=== PATIENT | male | born 1945 | race Caucasian/White ===

== ENCOUNTER 2020-08-25 15:09 | Inpatient (IN) | payer MEDICARE, SELFPAY ==
[2020-08-25 17:17] VITALS: BP 137/65; PULSE 71; TEMP 37.1; O2SAT 95
[2020-08-25 18:28] VITALS: BP 127/85; PULSE 86; RESP 18; TEMP 36.6; O2SAT 100
[2020-08-26 06:00] VITALS: BP 127/64; PULSE 77; RESP 16; TEMP 37.4; O2SAT 98
[2020-08-26 06:13] LABS: MANUAL DIFF FLAG NO
[2020-08-26 06:21] LABS: Basophils Percent Auto 0.4 % (0-2); Eosinophils Absolute Auto 0.1 X10*3/uL (0.0-0.4); Eosinophils Percent Auto 1.8 % (0-4); Hematocrit 34.4 % (42-52); Hemoglobin 10.8 g/dl (14.0-18.0); Imm Gran Abs Auto 0.02 X10*3/uL (0.00-0.03); Imm Gran Pct Auto 0.4 % (0.0-0.4); Lymphocytes Absolute Auto 0.8 X10*3/uL (1.2-4.9); Lymphocytes Percent Auto 18.3 % (20-40); Mean Corpuscular HGB Conc 31.4 g/dl (31.0-36.0); Mean Corpuscular Hemoglobin 30.6 pg (27.0-33.0); Mean Corpuscular Volume 97.5 fL (80-98); Mean Platelet Volume 9.3 fL (9.4-12.4); Monocytes Absolute Auto 0.4 X10*3/uL (0.1-1.2); Monocytes Percent Auto 7.9 % (2-11); Neutrophils Absolute Auto 3.2 X10*3/uL (2.0-8.3); Neutrophils Percent Auto 71.2 % (45-73); Platelet Count 137 X10*3/uL (160-400); Red Blood Count 3.53 X10*6/uL (4.60-5.80); Red Cell Distribution Width 16.1 % (11.0-16.0); White Blood Count 4.5 X10*3/uL (4.8-10.8)
[2020-08-26 06:51] LABS: Estimated Average Glucose 85 mg/dL; Hemoglobin A1c % 4.6 %
[2020-08-26 07:07] LABS: Alanine Aminotransferase 44 U/L (0-40); Albumin Level 3.5 g/dL (3.5-5.0); Alkaline Phosphatase 74 U/L (39-117); Anion Gap 9 (12-20); Aspartate Amino Transferase 27 U/L (5-37); Bilirubin Direct 0.2 mg/dL (0.0-0.5); Bilirubin Total 0.4 mg/dL (0.0-1.0); Blood Urea Nitrogen 18 mg/dL (9-16); Calcium 8.7 mg/dL (8.4-10.2); Carbon Dioxide 30 mmol/L (22-29); Chloride 104 mmol/L (96-108); Cholesterol 115 mg/dL; Creatinine Clr Calc Pharmacy 66.2; Estimated Glomerular Filt Rate > 60; Glucose Fasting 99 mg/dL (60-99); HDL Cholesterol 32 mg/dL; LDL Cholesterol Calculated 71 mg/dl; Potassium 4.6 mmol/L (3.3-5.1); Sodium 138 mmol/L (135-145); Total Protein 5.6 g/dL (6.5-8.0); Triglycerides 61 mg/dL
[2020-08-26 07:08] LABS: Thyroid Stimulating Hormone 1.36 uIU/mL (0.32-4.0)
--- NOTE | 2020-08-26 13:48 | HO.PSYADMNOT ---
HPI Chief Complaint: Adjustment D/O w/mixed Anxiety Depressed Mood Sources of Information: patient interviewed, chart reviewed and crisis/core team assessment reviewed HPI Subjective Notes: Conditional Voluntary Narrative: The patient is a 75 year old male, , father of 3 adult children, retired from the banking industry, living with his family with good social support, referred by his and [facility] provider since he became abruptly confused, with suicidal thoughts, inability to focus and altered mental status after the increase of Clomipramine from 50 mg to 100 mg. The patient reported that he can't remember the details but after he was on Clomipramine 100 mg, he became lost , with paranoia and sporadic auditory hallucinations. He was brought to the ED where he was medically cleared and transferred to this unit for psychiatric stabilization. During the intake interview, he was pleasant but confused, he didn't remember which hospital he was on but he was engagable and more oriented than before. He stated that he has depression and anxiety for years and he has never had psychotic symptoms on the past. Past Psychiatric History: Never admitted before, outpatient services, currently at [facility]. Medical Evaluation Reviewed: Hospitalist Jack Pending Assessed on the ED of [facility] Narrative: HTN High cholesterol Narrative: History of back surgery Family History: Denies Social History: Retired, living with his family, father of 3 adult children and 7 grandchildren, with good social support Substance History: Denies Trauma History: Denies Diagnostics Vital Signs (24Hr): Vital Signs - 24 hr 08/25/20 17:17 08/25/20 18:28 08/26/20 06:00 Temperature 98.7 F 97.8 F 99.3 F Pulse Rate 71 86 77 Respiratory Rate 18 16 Blood Pressure 137/65 127/85 127/64 Pulse Oximetry 95 100 98 Labs Results: 08/26/20 06:06 08/26/20 06:06 Labs: Laboratory Results - last 48 hr 08/26/20 08/26/20 08/26/20 06:06 06:06 06:06 WBC 4.5 L RBC 3.53 L Hgb 10.8 L Hct 34.4 L MCV 97.5 MCH 30.6 MCHC 31.4 RDW 16.1 H Plt Count 137 L MPV 9.3 L Immature Gran % (Auto) 0.4 Neut % (Auto) 71.2 Lymph % (Auto) 18.3 L [place] % (Auto) 7.9 Eos % (Auto) 1.8 Baso % (Auto) 0.4 Lymph # (Auto) 0.8 L [place] # (Auto) 0.4 Eos # (Auto) 0.1 Baso # (Auto) 0.0 Abs Immat Gran (auto) 0.02 Absolute Neuts (auto) 3.2 Absolute Nucleated RBC 0.000 Nucleated RBC % (auto) 0.0 Sodium 138 Potassium 4.6 Chloride 104 Carbon Dioxide 30 H Anion Gap 9 L BUN 18 H Creatinine 0.84 Estim Creat Clear Calc 66.2 Estimated GFR > 60 Fasting Glucose 99 Estimat Average Glucose 85 Hemoglobin A1c % 4.6 Calcium 8.7 Total Bilirubin 0.4 Direct Bilirubin 0.2 AST 27 ALT 44 H Alkaline Phosphatase 74 Total Protein 5.6 L Albumin 3.5 Triglycerides 61 Cholesterol 115 LDL Cholesterol, Calc 71 HDL Cholesterol 32 TSH 1.36 Meds/Allergies Meds Home Medications Acetaminophen (Acetaminophen 325 Mg Tablet) 650 mg PO Q6H PRN PRN Reason: Headache/Pain Mild Scale (1-3) Al Hydroxide/Mg Hydroxide (Magnesium Hydrox/Alum Hydrox 30 Ml Oral.Susp) 30 ml PO Q6H PRN PRN Reason: Heartburn/Nausea Aripiprazole (Aripiprazole 5 Mg Tablet) 5 mg PO DAILY ELIDA Atorvastatin Calcium (Atorvastatin Calcium 20 Mg Tablet) 20 mg PO BEDTIME ELIDA Cyanocobalamin (Cyanocobalamin (Vitamin B-12) 1,000 Mcg Tablet) 1,000 mcg PO DAILY ELIDA Docusate Sodium (Docusate Sodium 100 Mg Capsule) 200 mg PO BEDTIME ELIDA Hydroxyzine HCl (Hydroxyzine Hcl 25 Mg Tablet) 25 mg PO BEDTIME PRN PRN Reason: Anxiety Magnesium Hydroxide (Milk Of Magnesia 30 Ml Oral.Susp) 30 ml PO DAILY PRN PRN Reason: Constipation Multivitamins/Vitamin C (Multivitamin Tablet) 1 tab PO DAILY ELIDA Paroxetine HCl (Paroxetine Hcl 20 Mg Tablet) 20 mg PO DAILY ELIDA Trazodone HCl (Trazodone Hcl 50 Mg Tablet) 50 mg PO BEDTIME PRN PRN Reason: Insomnia Allergies Allergies Allergy/AdvReac Type Severity Reaction Status Date / Time lisinopril AdvReac Mild Cough Verified 08/25/20 17:00 losartan AdvReac Mild Cough Verified 08/25/20 16:59 Mental Status Exam Mental Status Exam Patient Appearance: Well Grooomed Patient Orientation: Person and Situation Level of Consciousness: Awake Patient Behavior: Cooperative, Confused (at times) and Good Eye Contact Mood Description: Withdrawn Affect Description: Constricted Ability to Follow Directions: Good Speech Pattern: Clear Memory Description: Immediate Impaired and Recent Impaired Hallucinations: None Delusions: Ideas of Reference Thought Process: Distracted and Slowed Thinking Thought Content: positive for Circumstantial and positive for Evasive Depressive Symptoms: Increased Irritability Judgement: Fair Assessment & Plan Assessment & Plan (1) Delirium due to medical condition with behavioral disturbance: Status: Acute Code(s): F05 - Delirium due to known physiological condition Assessment and Plan: The patient is an elderly male with an acute change of mental status after the increase of Clomipramine with changes on mental status and suicidal thoughts. Plan: 1. D/C Clomipramine 2. Gather collateral information from [facility]. 3. D/C anticholinergics (Vistaril, Atarax, etc)4 4. Bloodwork came back normal (2) Major depressive disorder, recurrent episode: Status: Acute Qualifiers: Major depression episode severity: severe Psychotic features: without psychotic features Qualified Code(s): F33.2 - Major depressive disorder, recurrent severe without psychotic features Code(s): F33.9 - Major depressive disorder, recurrent, unspecified Assessment and Plan: Plan: Continue with Paxil 20 mg po daily. Patient educated on: diagnosis, medication risk/benefits and therapeutic strategies Informed Consent: understands Reason for continued inpatient stay Substantial Risk for: harm to self, rapid decompensation and med/psych decompensation
--- NOTE | 2020-08-26 14:29 | MHC.CLN ---
NUTRITION PATIENT REPORTS 45# WEIGHT LOSS X 1 YEAR. ATTRIBUTED WEIGHT LOSS TO BOWEL CONCERNS, PRIMARILY CONSTIPATION. REPORTED WEIGHT LOSS X 1 YEAR=-7.6%,NOT SIGNIFICANT. REPORTS THAT HAS A GOOD APPETITE, EATING WELL, AND HAS GAINED SOME WEIGHT. DECLINED SUPPLEMENTS.
[2020-08-26] MEDS: PARoxetine HCL 20 MG TABLET PO (16:56)
[2020-08-26 18:00] VITALS: BP 115/57; PULSE 65; TEMP 36.4; O2SAT 99
[2020-08-26] MEDS: Docusate Sodium 100 MG CAPSULE 200 MG PO (20:23)
[2020-08-26] MEDS: Atorvastatin Calcium 20 MG TABLET PO (20:23)
[2020-08-27] MEDS: Multivitamin TABLET 1 TAB PO (08:01)
[2020-08-27] MEDS: PARoxetine HCL 20 MG TABLET PO (08:01)
[2020-08-27] MEDS: Cyanocobalamin (Vitamin B-12) 1,000 MCG TABLET 1000 MCG PO (08:01)
[2020-08-27] MEDS: ARIPiprazole 5 MG TABLET PO (08:01)
[2020-08-27 08:23] VITALS: BP 119/58; PULSE 83; RESP 16; TEMP 36.3; O2SAT 99
--- NOTE | 2020-08-27 09:34 | P.PNPSI_ITS ---
Subjective Subjective Date of Service: 08/27/20 Reason For Visit: Adjustment D/O w/mixed Anxiety Depressed Mood Interim History: pt reports his paxil has been increased and hydroxyzine has b een DCed. he c/o constipation and will check in with nursing staff on his options for today; encouraged him to ask RN to contact MD for PRN laxative if he weas unable to achieve satisfaction. mood fine, reports eating and sleeping well. no other complaints or requests. no remarkable report by staff; stable on unit, behaving appropriately, depressed. Mental Status Exam Mental Status Exam Narrative: appropriately dressed and groomed. no PMA/PMR. cooperative with interview. speech normal in rate, amount, loudness, tone, latency. thoughts linear and logical. affect constricted, normo-intense, non-labile. mood fine. no SI/HI/AVH expressed. Diagnostics Vital Signs (24Hr): Vital Signs - 24 hr 08/26/20 18:00 08/27/20 08:23 Temperature 97.6 F 97.3 F Pulse Rate 65 83 Respiratory Rate 16 Blood Pressure 115/57 L 119/58 L Pulse Oximetry 99 99 Labs Results: 08/26/20 06:06 08/26/20 06:06 Labs: Laboratory Results - last 48 hr 08/26/20 08/26/20 08/26/20 06:06 06:06 06:06 WBC 4.5 L RBC 3.53 L Hgb 10.8 L Hct 34.4 L MCV 97.5 MCH 30.6 MCHC 31.4 RDW 16.1 H Plt Count 137 L MPV 9.3 L Immature Gran % (Auto) 0.4 Neut % (Auto) 71.2 Lymph % (Auto) 18.3 L [place] % (Auto) 7.9 Eos % (Auto) 1.8 Baso % (Auto) 0.4 Lymph # (Auto) 0.8 L [place] # (Auto) 0.4 Eos # (Auto) 0.1 Baso # (Auto) 0.0 Abs Immat Gran (auto) 0.02 Absolute Neuts (auto) 3.2 Absolute Nucleated RBC 0.000 Nucleated RBC % (auto) 0.0 Sodium 138 Potassium 4.6 Chloride 104 Carbon Dioxide 30 H Anion Gap 9 L BUN 18 H Creatinine 0.84 Estim Creat Clear Calc 66.2 Estimated GFR > 60 Fasting Glucose 99 Estimat Average Glucose 85 Hemoglobin A1c % 4.6 Calcium 8.7 Total Bilirubin 0.4 Direct Bilirubin 0.2 AST 27 ALT 44 H Alkaline Phosphatase 74 Total Protein 5.6 L Albumin 3.5 Triglycerides 61 Cholesterol 115 LDL Cholesterol, Calc 71 HDL Cholesterol 32 TSH 1.36 Medications Medications Current Medications Generic Name Dose Route Start Last Admin Trade Name Freq PRN Reason Stop Dose Admin Acetaminophen 650 mg 08/25/20 17:01 Acetaminophen 325 Mg Tablet PO Q6H PRN Headache/Pain Mild Scale (1-3) Al Hydroxide/Mg Hydroxide 30 ml 08/25/20 17:01 Magnesium Hydrox/Alum Hydrox 30 Ml Oral.Susp PO Q6H PRN Heartburn/Nausea Aripiprazole 5 mg 08/27/20 09:00 08/27/20 08:01 Aripiprazole 5 Mg Tablet PO 5 mg DAILY ELIDA Administration Atorvastatin Calcium 20 mg 08/26/20 21:00 08/26/20 20:23 Atorvastatin Calcium 20 Mg Tablet PO 20 mg BEDTIME ELIDA Administration Cyanocobalamin 1,000 mcg 08/27/20 09:00 08/27/20 08:01 Cyanocobalamin (Vitamin B-12) 1,000 Mcg Tablet PO 1,000 mcg DAILY ELIDA Administration Docusate Sodium 200 mg 08/26/20 21:00 08/26/20 20:23 Docusate Sodium 100 Mg Capsule PO 200 mg BEDTIME ELIDA Administration Lorazepam 0.25 mg 08/26/20 14:03 Lorazepam 0.5 Mg Tablet PO Q8H PRN anxiety Magnesium Hydroxide 30 ml 08/25/20 17:01 Milk Of Magnesia 30 Ml Oral.Susp PO DAILY PRN Constipation Multivitamins/Vitamin C 1 tab 08/27/20 09:00 08/27/20 08:01 Multivitamin Tablet PO 1 tab DAILY ELIDA Administration Paroxetine HCl 20 mg 08/27/20 09:00 08/27/20 08:01 Paroxetine Hcl 20 Mg Tablet PO 20 mg DAILY ELIDA Administration Trazodone HCl 50 mg 08/25/20 17:01 Trazodone Hcl 50 Mg Tablet PO BEDTIME PRN Insomnia Allergies Allergies Allergy/AdvReac Type Severity Reaction Status Date / Time lisinopril AdvReac Mild Cough Verified 08/25/20 17:00 losartan AdvReac Mild Cough Verified 08/25/20 16:59 Assessment & Plan Assessment & Plan (1) Delirium due to medical condition with behavioral disturbance: Status: Acute Code(s): F05 - Delirium due to known physiological condition Assessment and Plan: The patient is a 75 yo male with an acute change of mental status after the increase of Clomipramine with changes on mental status and suicidal thoughts. Plan: 1. D/Daryl Clomipramine 2. Gather collateral information from [facility]. 3. D/Daryl anticholinergics (Vistaril, Atarax, etc) 4. Bloodwork came back normal (2) Major depressive disorder, recurrent episode: Qualifiers: Major depression episode severity: severe Psychotic features: without psychotic features Qualified Code(s): F33.2 - Major depressive disorder, recurrent severe without psychotic features Status: Acute Code(s): F33.9 - Major depressive disorder, recurrent, unspecified Assessment and Plan: Plan: Continue with Paxil 20 mg po daily. Greater than 50% of the session was spent on counseling and/or coordination of care Reason for contiued inpatient stay Substantial Risk for: inability to function and rapid decompensation
[2020-08-27 10:13] LABS: Amphetamine Screen Urine Not Detected (Not Detect); Barbiturates, Urine Not Detected (Not Detect); Benzodiazepines Screen Urine Not Detected (Not Detect); Cannabinoid Screen Urine Not Detected (Not Detect); Cocaine Screen Urine Not Detected (Not Detect); Opiate Screen Urine Not Detected (Not Detect); Phencyclidine Screen Urine Not Detected (Not Detect)
[2020-08-27] MEDS: Milk of Magnesia 30 ML ORAL.SUSP PO (10:46)
--- NOTE | 2020-08-27 16:15 | P.CONIM_ITS ---
History of Present Illness Data of Consult Service Date: 08/27/20 Primary Care Provider: Riky Greene MD [facility] Reason for consult: Medical evaluation 75 year old male with HTN, HLD, former banker from [employer] no diabetes, no CAD, says he is very active and walk alot and looks fit. He is presently admitted to inpatient Psych due acute onset of confusion, with with suicidal thoughts, lack of focus and family concern, this following recent increase in Clomipramine from 50 mg to 100 mg. He states that he feels lost, and has periods of paranoia and auditory hallucination. He interacted rather well during my encouter with him. Has no angina, no heart failure symptoms. Review of Systems Review of Systems: Gen: no fever Resp: no sob, no cough CV: no chest, no WATERS, no leg edema GI: No n/v, no abd pain Neuro: No confusion Yes all other systems are reviewed and are negative [facility] Medical History (Updated 08/27/20 @ 16:17 by Jian Daniel MD) HLD (hyperlipidemia) HTN (hypertension) Pertinent family history: Father at 62 Family history: reviewed and not pertinent Surgical History Previous back surgery Social History Household Members: Spouse Housing: House Do you presently have visiting nurse or other home services: No Patient Tobacco Use Status: Never used Tobacco e-Cigarette/Vaping Use: Never Used Use of substances other than those prescribed or required for medical reasons: No Currently Displaying Signs/Symptoms of Drug Intoxication Withdrawal: No Have you been hit, kicked, punched, or otherwise hurt by someone within the past year? If so, by whom?: No Do you feel safe in your current relationship?: Yes Is there a partner from a previous relationship who is making you feel unsafe now?: No Are you made to feel afraid or neglected: No Advance Directives: No Advance Directives Information Provided: Yes Advance Directives on File: No Do you have thoughts of harming others: None Do you have a plan to hurt others: No Plan Recently lost weight without trying: Yes How much weight loss: 34pounds or more Eating poorly because of decreased appetite: Yes Nutrition screen score: 7 Poor oral hygiene: No service: Yes Sexual orientation: Straight/Heterosexual Meds Allergies Allergy/AdvReac Type Severity Reaction Status Date / Time lisinopril AdvReac Mild Cough Verified 08/25/20 17:00 losartan AdvReac Mild Cough Verified 08/25/20 16:59 Active Medications: Current Medications Generic Name Dose Route Start Last Admin Trade Name Freq PRN Reason Stop Dose Admin Acetaminophen 650 mg 08/25/20 17:01 Acetaminophen 325 Mg Tablet PO Q6H PRN Headache/Pain Mild Scale (1-3) Al Hydroxide/Mg Hydroxide 30 ml 08/25/20 17:01 Magnesium Hydrox/Alum Hydrox 30 Ml Oral.Susp PO Q6H PRN Heartburn/Nausea Aripiprazole 5 mg 08/27/20 09:00 08/27/20 08:01 Aripiprazole 5 Mg Tablet PO 5 mg DAILY ELIDA Administration Atorvastatin Calcium 20 mg 08/26/20 21:00 08/26/20 20:23 Atorvastatin Calcium 20 Mg Tablet PO 20 mg BEDTIME ELIDA Administration Cyanocobalamin 1,000 mcg 08/27/20 09:00 08/27/20 08:01 Cyanocobalamin (Vitamin B-12) 1,000 Mcg Tablet PO 1,000 mcg DAILY ELIDA Administration Docusate Sodium 200 mg 08/26/20 21:00 08/26/20 20:23 Docusate Sodium 100 Mg Capsule PO 200 mg BEDTIME ELIDA Administration Lorazepam 0.25 mg 08/26/20 14:03 Lorazepam 0.5 Mg Tablet PO Q8H PRN anxiety Magnesium Hydroxide 30 ml 08/25/20 17:01 08/27/20 10:46 Milk Of Magnesia 30 Ml Oral.Susp PO 30 ml DAILY PRN Administration Constipation Multivitamins/Vitamin C 1 tab 08/27/20 09:00 08/27/20 08:01 Multivitamin Tablet PO 1 tab DAILY ELIDA Administration Paroxetine HCl 20 mg 08/27/20 09:00 08/27/20 08:01 Paroxetine Hcl 20 Mg Tablet PO 20 mg DAILY ELIDA Administration Trazodone HCl 50 mg 08/25/20 17:01 Trazodone Hcl 50 Mg Tablet PO BEDTIME PRN Insomnia Home Medications Medication Instructions Recorded Confirmed Last Taken Type aripiprazole 5 mg PO DAILY 08/25/20 08/25/20 Unknown History atorvastatin 20 mg PO DAILY 08/25/20 08/25/20 Unknown History clomipramine 100 mg PO DAILY 08/25/20 08/25/20 Unknown History cyanocobalamin (vitamin B-12) 1,000 mcg PO DAILY 08/25/20 08/25/20 Unknown History docusate sodium 250 mg PO DAILY 08/25/20 08/25/20 Unknown History multivitamin 1 tab PO DAILY 08/25/20 08/25/20 Unknown History paroxetine HCl 20 mg PO DAILY 08/25/20 08/25/20 Unknown History sildenafil 50 mg PO DAILY 08/25/20 08/25/20 Unknown History Physical Exam Vital Signs and Narrative: Vital Signs: Last Vital Signs Temp 97.3 F 08/27/20 08:23 Pulse 83 08/27/20 08:23 Resp 16 08/27/20 08:23 BP 119/58 L 08/27/20 08:23 Pulse Ox 99 08/27/20 08:23 Results Labs CBC and Chem 7: 08/26/20 06:06 08/26/20 06:06 Labs: Laboratory Results - last 24 hr 08/27/20 Unknown Urine Opiates Screen Not Detected Ur Barbiturates Screen Not Detected Ur Phencyclidine Scrn Not Detected Ur Amphetamines Screen Not Detected U Benzodiazepines Scrn Not Detected Urine Cocaine Screen Not Detected U Marijuana (THC) Screen Not Detected Assessment and Plan (1) HLD (hyperlipidemia): Status: Acute (2) HTN (hypertension): Status: Acute 75 year male with HTN, HLD presently admitted to Psych with major depression, delirium, paranoia and auditory hallucination possibly related to adjustment in Clomipramine plan/recommemdation HTN--BP is within normal or slightly low and doesn't need med intervention at this time. He presently not on meds, he has allery to ACEi and ARBs in the form of cough HLD--To continue Lipitor Pysch issues: care per psych. Thanks for the consult, please contact us with new issues or concerns
[2020-08-27 18:27] VITALS: BP 123/58; PULSE 75; RESP 16; TEMP 37; O2SAT 100
[2020-08-27] MEDS: Docusate Sodium 100 MG CAPSULE 200 MG PO (19:49)
[2020-08-27] MEDS: Atorvastatin Calcium 20 MG TABLET PO (19:49)
[2020-08-28 05:14] VITALS: BP 167/80; PULSE 85; RESP 16; TEMP 36.6; O2SAT 100
[2020-08-28] MEDS: ARIPiprazole 5 MG TABLET PO (07:53)
[2020-08-28] MEDS: PARoxetine HCL 20 MG TABLET PO (07:53)
[2020-08-28] MEDS: Multivitamin TABLET 1 TAB PO (07:53)
[2020-08-28] MEDS: Cyanocobalamin (Vitamin B-12) 1,000 MCG TABLET 1000 MCG PO (07:53)
--- NOTE | 2020-08-28 11:55 | P.PNPSI_ITS ---
Subjective Subjective Date of Service: 08/28/20 Reason For Visit: Adjustment D/O w/mixed Anxiety Depressed Mood Interim History: states he has no questions or requests of MD today. spontane ously offers that his mind has settled down and that things are more stable. no remarkable report by staff. Mental Status Exam Mental Status Exam Narrative: appropriately dressed and groomed. no PMA/PMR. cooperative with interview. speech normal in rate, amount, loudness, tone, latency. thoughts linear and logical. affect constricted, normo-intense, non-labile. no SI/HI/AVH expressed. Diagnostics Vital Signs (24Hr): Vital Signs - 24 hr 08/27/20 18:27 08/28/20 05:14 Temperature 98.6 F 98 F Pulse Rate 75 85 Respiratory Rate 16 16 Blood Pressure 123/58 L 167/80 H Pulse Oximetry 100 100 Labs Results: 08/26/20 06:06 08/26/20 06:06 Labs: Laboratory Results - last 48 hr 08/27/20 Unknown Urine Opiates Screen Not Detected Ur Barbiturates Screen Not Detected Ur Phencyclidine Scrn Not Detected Ur Amphetamines Screen Not Detected U Benzodiazepines Scrn Not Detected Urine Cocaine Screen Not Detected U Marijuana (THC) Screen Not Detected Medications Medications Current Medications Generic Name Dose Route Start Last Admin Trade Name Freq PRN Reason Stop Dose Admin Acetaminophen 650 mg 08/25/20 17:01 Acetaminophen 325 Mg Tablet PO Q6H PRN Headache/Pain Mild Scale (1-3) Al Hydroxide/Mg Hydroxide 30 ml 08/25/20 17:01 Magnesium Hydrox/Alum Hydrox 30 Ml Oral.Susp PO Q6H PRN Heartburn/Nausea Aripiprazole 5 mg 08/27/20 09:00 08/28/20 07:53 Aripiprazole 5 Mg Tablet PO 5 mg DAILY ELIDA Administration Atorvastatin Calcium 20 mg 08/26/20 21:00 08/27/20 19:49 Atorvastatin Calcium 20 Mg Tablet PO 20 mg BEDTIME ELIDA Administration Cyanocobalamin 1,000 mcg 08/27/20 09:00 08/28/20 07:53 Cyanocobalamin (Vitamin B-12) 1,000 Mcg Tablet PO 1,000 mcg DAILY ELIDA Administration Docusate Sodium 200 mg 08/26/20 21:00 08/27/20 19:49 Docusate Sodium 100 Mg Capsule PO 200 mg BEDTIME ELIDA Administration Lorazepam 0.25 mg 08/26/20 14:03 Lorazepam 0.5 Mg Tablet PO Q8H PRN anxiety Magnesium Hydroxide 30 ml 08/25/20 17:01 08/27/20 10:46 Milk Of Magnesia 30 Ml Oral.Susp PO 30 ml DAILY PRN Administration Constipation Multivitamins/Vitamin C 1 tab 08/27/20 09:00 08/28/20 07:53 Multivitamin Tablet PO 1 tab DAILY ELIDA Administration Paroxetine HCl 20 mg 08/27/20 09:00 08/28/20 07:53 Paroxetine Hcl 20 Mg Tablet PO 20 mg DAILY ELIDA Administration Trazodone HCl 50 mg 08/25/20 17:01 Trazodone Hcl 50 Mg Tablet PO BEDTIME PRN Insomnia Allergies Allergies Allergy/AdvReac Type Severity Reaction Status Date / Time lisinopril AdvReac Mild Cough Verified 08/25/20 17:00 losartan AdvReac Mild Cough Verified 08/25/20 16:59 Assessment & Plan Assessment & Plan (1) HLD (hyperlipidemia): Status: Acute Code(s): E78.5 - Hyperlipidemia, unspecified (2) HTN (hypertension): Status: Acute Code(s): I10 - Essential (primary) hypertension Assessment and Plan: The patient is a 75 yo male with an acute change of mental status after the increase of Clomipramine with changes on mental status and suicidal thoughts. continues to clear nicely. Plan: 1. D/Daryl Clomipramine 2. Gather collateral information from [facility]. 3. D/Daryl anticholinergics (Vistaril, Atarax, etc) 4. Bloodwork came back normal Greater than 50% of the session was spent on counseling and/or coordination of care Reason for contiued inpatient stay Substantial Risk for: inability to function
[2020-08-28 17:33] VITALS: BP 117/56; PULSE 89; RESP 16; TEMP 36.8; O2SAT 100
[2020-08-28] MEDS: Atorvastatin Calcium 20 MG TABLET PO (20:20)
[2020-08-28] MEDS: Docusate Sodium 100 MG CAPSULE 200 MG PO (20:20)
[2020-08-29 05:32] VITALS: BP 130/61; PULSE 69; RESP 18; TEMP 36.6; O2SAT 98
[2020-08-29] MEDS: Multivitamin TABLET 1 TAB PO (08:07)
[2020-08-29] MEDS: Cyanocobalamin (Vitamin B-12) 1,000 MCG TABLET 1000 MCG PO (08:07)
[2020-08-29] MEDS: PARoxetine HCL 20 MG TABLET PO (08:07)
[2020-08-29] MEDS: ARIPiprazole 5 MG TABLET PO (08:07)
--- NOTE | 2020-08-29 10:57 | P.PNPSI_ITS ---
Subjective Subjective Date of Service: 08/29/20 Reason For Visit: Adjustment D/O w/mixed Anxiety Depressed Mood Interim History: states he has no questions or requests of MD today. continues to feel much less confused, thinking of discharge. no remarkable report by staff. Mental Status Exam Mental Status Exam Narrative: appropriately dressed and groomed. no PMA/PMR. [facility]. speech normal in rate, amount, loudness, tone, latency. thoughts linear and logical. affect constricted, normo-intense, non-labile. no SI/HI/AVH expressed. Diagnostics Vital Signs (24Hr): Vital Signs - 24 hr 08/28/20 17:33 08/29/20 05:32 Temperature 98.2 F 97.9 F Pulse Rate 89 69 Respiratory Rate 16 18 Blood Pressure 117/56 L 130/61 Pulse Oximetry 100 98 Labs Results: 08/26/20 06:06 08/26/20 06:06 Medications Medications Current Medications Generic Name Dose Route Start Last Admin Trade Name Freq PRN Reason Stop Dose Admin Acetaminophen 650 mg 08/25/20 17:01 Acetaminophen 325 Mg Tablet PO Q6H PRN Headache/Pain Mild Scale (1-3) Al Hydroxide/Mg Hydroxide 30 ml 08/25/20 17:01 Magnesium Hydrox/Alum Hydrox 30 Ml Oral.Susp PO Q6H PRN Heartburn/Nausea Aripiprazole 5 mg 08/27/20 09:00 08/29/20 08:07 Aripiprazole 5 Mg Tablet PO 5 mg DAILY ELIDA Administration Atorvastatin Calcium 20 mg 08/26/20 21:00 08/28/20 20:20 Atorvastatin Calcium 20 Mg Tablet PO 20 mg BEDTIME ELIDA Administration Cyanocobalamin 1,000 mcg 08/27/20 09:00 08/29/20 08:07 Cyanocobalamin (Vitamin B-12) 1,000 Mcg Tablet PO 1,000 mcg DAILY ELIDA Administration Docusate Sodium 200 mg 08/26/20 21:00 08/28/20 20:20 Docusate Sodium 100 Mg Capsule PO 200 mg BEDTIME ELIDA Administration Lorazepam 0.25 mg 08/26/20 14:03 Lorazepam 0.5 Mg Tablet PO Q8H PRN anxiety Magnesium Hydroxide 30 ml 08/25/20 17:01 08/27/20 10:46 Milk Of Magnesia 30 Ml Oral.Susp PO 30 ml DAILY PRN Administration Constipation Multivitamins/Vitamin C 1 tab 08/27/20 09:00 08/29/20 08:07 Multivitamin Tablet PO 1 tab DAILY ELIDA Administration Paroxetine HCl 20 mg 08/27/20 09:00 08/29/20 08:07 Paroxetine Hcl 20 Mg Tablet PO 20 mg DAILY ELIDA Administration Trazodone HCl 50 mg 08/25/20 17:01 Trazodone Hcl 50 Mg Tablet PO BEDTIME PRN Insomnia Allergies Allergies Allergy/AdvReac Type Severity Reaction Status Date / Time lisinopril AdvReac Mild Cough Verified 08/25/20 17:00 losartan AdvReac Mild Cough Verified 08/25/20 16:59 Assessment & Plan Assessment & Plan (1) HLD (hyperlipidemia): Status: Acute Code(s): E78.5 - Hyperlipidemia, unspecified (2) HTN (hypertension): Status: Acute Code(s): I10 - Essential (primary) hypertension Assessment and Plan: The patient is a 75 yo male with an acute change of mental status after the increase of Clomipramine with changes on mental status and suicidal thoughts. continues to clear nicely. Plan: 1. D/Daryl Clomipramine 2. Gather collateral information from [facility]. 3. D/Daryl anticholinergics (Vistaril, Atarax, etc) 4. Bloodwork came back normal Greater than 50% of the session was spent on counseling and/or coordination of care Reason for contiued inpatient stay Substantial Risk for: inability to function
[2020-08-29 17:44] VITALS: BP 121/64; PULSE 78; RESP 16; TEMP 36.7; O2SAT 98
[2020-08-29] MEDS: Docusate Sodium 100 MG CAPSULE 200 MG PO (20:37)
[2020-08-29] MEDS: Atorvastatin Calcium 20 MG TABLET PO (20:37)
--- NOTE | 2020-08-30 | ECG_ITS ---
Test Reason : QTC Blood Pressure : / mmHG Vent. Rate : 077 BPM Atrial Rate : 077 BPM P-R Int : 148 ms QRS Dur : 090 ms QT Int : 364 ms P-R-T Axes : 031 021 040 degrees QTc Int : 411 ms Sinus rhythm with marked sinus arrhythmia Otherwise normal ECG When compared with ECG of 22-JAN-2007 13:44, Premature supraventricular complexes are no longer Present Vent. rate has increased BY 25 BPM Referred By: Thiago Crow Electronically Signed By:MONTANA ESPINOZA
[2020-08-30 06:42] VITALS: BP 149/72; PULSE 70; RESP 16; TEMP 36.8; O2SAT 100
[2020-08-30] MEDS: ARIPiprazole 5 MG TABLET PO (08:17)
[2020-08-30] MEDS: Multivitamin TABLET 1 TAB PO (08:17)
[2020-08-30] MEDS: PARoxetine HCL 20 MG TABLET PO (08:17)
[2020-08-30] MEDS: Cyanocobalamin (Vitamin B-12) 1,000 MCG TABLET 1000 MCG PO (08:17)
--- NOTE | 2020-08-30 10:57 | HO.PSYCHPN ---
Subjective Subjective Date of Service: 08/30/20 Reason For Visit: Adjustment D/O w/mixed Anxiety Depressed Mood Subjective Notes: Conditional Voluntary Interim History: The patient has slept well in the unit, he was less confused after Clomipramine was discontinued. Her outpatient DIRECTOR OF ELEMENTARY EDUCATION Tabitha Jose at [phone] was contacted and she reported that she saw over the phone only once and her PCP increased the Clomipramine. Apparently, he was admitted once in May 2020 after he cut himself to the tendons and Clomipramine was started. We discussed options and I offered Luvox instead of Clomipramine and Paxil. Review of Systems Review of Systems Yes all other systems are reviewed and are negative Mental Status Exam Mental Status Exam Patient Appearance: Well Grooomed Patient Orientation: Person and Place Level of Consciousness: Awake Patient Behavior: Appropriate Mood Description: Calm and Withdrawn Affect Description: Constricted Patient Cognition Impaired: No Ability to Follow Directions: Good Speech Pattern: Clear Memory Description: Immediate Impaired Hallucinations: None Delusions: Not Present Thought Process: Linear and Slowed Thinking Thought Content: positive for Obsessional Thoughts Depressive Symptoms: Increased Anxiety Judgement: Fair Diagnostics Vital Signs (24Hr): Vital Signs - 24 hr 08/29/20 17:44 08/30/20 06:42 Temperature 98.1 F 98.2 F Pulse Rate 78 70 Respiratory Rate 16 16 Blood Pressure 121/64 149/72 H Pulse Oximetry 98 100 Labs Results: 08/26/20 06:06 08/26/20 06:06 Medications Medications Current Medications Generic Name Dose Route Start Last Admin Trade Name Freq PRN Reason Stop Dose Admin Acetaminophen 650 mg 08/25/20 17:01 Acetaminophen 325 Mg Tablet PO Q6H PRN Headache/Pain Mild Scale (1-3) Al Hydroxide/Mg Hydroxide 30 ml 08/25/20 17:01 Magnesium Hydrox/Alum Hydrox 30 Ml Oral.Susp PO Q6H PRN Heartburn/Nausea Aripiprazole 5 mg 08/27/20 09:00 08/30/20 08:17 Aripiprazole 5 Mg Tablet PO 5 mg DAILY ELIDA Administration Atorvastatin Calcium 20 mg 08/26/20 21:00 08/29/20 20:37 Atorvastatin Calcium 20 Mg Tablet PO 20 mg BEDTIME ELIDA Administration Cyanocobalamin 1,000 mcg 08/27/20 09:00 08/30/20 08:17 Cyanocobalamin (Vitamin B-12) 1,000 Mcg Tablet PO 1,000 mcg DAILY ELIDA Administration Docusate Sodium 200 mg 08/26/20 21:00 08/29/20 20:37 Docusate Sodium 100 Mg Capsule PO 200 mg BEDTIME ELIDA Administration Lorazepam 0.25 mg 08/26/20 14:03 Lorazepam 0.5 Mg Tablet PO Q8H PRN anxiety Magnesium Hydroxide 30 ml 08/25/20 17:01 08/27/20 10:46 Milk Of Magnesia 30 Ml Oral.Susp PO 30 ml DAILY PRN Administration Constipation Multivitamins/Vitamin C 1 tab 08/27/20 09:00 08/30/20 08:17 Multivitamin Tablet PO 1 tab DAILY ELIDA Administration Paroxetine HCl 20 mg 08/27/20 09:00 08/30/20 08:17 Paroxetine Hcl 20 Mg Tablet PO 20 mg DAILY ELIDA Administration Trazodone HCl 50 mg 08/25/20 17:01 Trazodone Hcl 50 Mg Tablet PO BEDTIME PRN Insomnia Allergies Allergies Allergy/AdvReac Type Severity Reaction Status Date / Time lisinopril AdvReac Mild Cough Verified 08/25/20 17:00 losartan AdvReac Mild Cough Verified 08/25/20 16:59 Assessment & Plan Assessment & Plan (1) HLD (hyperlipidemia): Status: Acute Code(s): E78.5 - Hyperlipidemia, unspecified (2) HTN (hypertension): Status: Acute Code(s): I10 - Essential (primary) hypertension Assessment and Plan: The patient is a 75 yo male with an acute change of mental status after the increase of Clomipramine with changes on mental status and suicidal thoughts. continues to clear nicely. Plan: 1. Increase Paxil up to 30 mg to target dysphoria and OCD 2. Stop Clomipramine. Greater than 50% of the session was spent on counseling and/or coordination of care Reason for contiued inpatient stay Substantial Risk for: inability to function, rapid decompensation and med/psych decompensation
[2020-08-30] MEDS: PARoxetine HCL 10 MG TABLET PO (13:45)
[2020-08-30 17:44] VITALS: BP 119/64; PULSE 85; TEMP 37.4; O2SAT 99
[2020-08-30] MEDS: Docusate Sodium 100 MG CAPSULE 200 MG PO (21:24)
[2020-08-30] MEDS: Atorvastatin Calcium 20 MG TABLET PO (21:24)
[2020-08-31 06:00] VITALS: BP 135/65; PULSE 83; RESP 12; TEMP 36.3; O2SAT 99
[2020-08-31] MEDS: PARoxetine HCL 10 MG TABLET 30 MG PO (07:58)
[2020-08-31] MEDS: Cyanocobalamin (Vitamin B-12) 1,000 MCG TABLET 1000 MCG PO (07:58)
[2020-08-31] MEDS: Multivitamin TABLET 1 TAB PO (07:58)
[2020-08-31] MEDS: ARIPiprazole 5 MG TABLET PO (07:58)
--- NOTE | 2020-08-31 11:24 | P.PNPSI_ITS ---
Subjective Subjective Date of Service: 08/31/20 Reason For Visit: Adjustment D/O w/mixed Anxiety Depressed Mood Subjective Notes: Conditional Voluntary Interim History: The patient reported that his psychotic symptoms has cleared. He wanted to continue using Paxil for depression and OCD. He denies depressive symptoms but his affect is constricted. His , who does not live with him, called and reported that he is not at baseline but as per the patient, they are stranged. The patient adamantly denied suicidal thoughts. Medication Compliance: Yes Review of Systems Acute medical concerns: No Medical Review of Systems: unchanged Mental Status Exam Mental Status Exam Patient Appearance: Well Grooomed Patient Orientation: Person, Place and Time Level of Consciousness: Awake and Appropriate Patient Behavior: Cooperative Mood Description: Calm and Depressed Affect Description: Constricted Patient Cognition Impaired: No Ability to Follow Directions: Good Speech Pattern: Clear Hallucinations: None Delusions: Not Present Thought Process: Goal Oriented and Linear Thought Content: positive for Goal Oriented and positive for Poverty of Content Judgement: Fair Diagnostics Vital Signs (24Hr): Vital Signs - 24 hr 08/30/20 17:44 08/31/20 06:00 Temperature 99.3 F 97.4 F Pulse Rate 85 83 Respiratory Rate 12 Blood Pressure 119/64 135/65 Pulse Oximetry 99 99 Labs Results: 08/26/20 06:06 08/26/20 06:06 Medications Medications Current Medications Generic Name Dose Route Start Last Admin Trade Name Freq PRN Reason Stop Dose Admin Acetaminophen 650 mg 08/25/20 17:01 Acetaminophen 325 Mg Tablet PO Q6H PRN Headache/Pain Mild Scale (1-3) Al Hydroxide/Mg Hydroxide 30 ml 08/25/20 17:01 Magnesium Hydrox/Alum Hydrox 30 Ml Oral.Susp PO Q6H PRN Heartburn/Nausea Aripiprazole 5 mg 08/27/20 09:00 08/31/20 07:58 Aripiprazole 5 Mg Tablet PO 5 mg DAILY ELIDA Administration Atorvastatin Calcium 20 mg 08/26/20 21:00 08/30/20 21:24 Atorvastatin Calcium 20 Mg Tablet PO 20 mg BEDTIME ELIDA Administration Cyanocobalamin 1,000 mcg 08/27/20 09:00 08/31/20 07:58 Cyanocobalamin (Vitamin B-12) 1,000 Mcg Tablet PO 1,000 mcg DAILY ELIDA Administration Docusate Sodium 200 mg 08/26/20 21:00 08/30/20 21:24 Docusate Sodium 100 Mg Capsule PO 200 mg BEDTIME ELIDA Administration Lorazepam 0.25 mg 08/26/20 14:03 Lorazepam 0.5 Mg Tablet PO Q8H PRN anxiety Magnesium Hydroxide 30 ml 08/25/20 17:01 08/27/20 10:46 Milk Of Magnesia 30 Ml Oral.Susp PO 30 ml DAILY PRN Administration Constipation Multivitamins/Vitamin C 1 tab 08/27/20 09:00 08/31/20 07:58 Multivitamin Tablet PO 1 tab DAILY ELIDA Administration Paroxetine HCl 30 mg 08/31/20 09:00 08/31/20 07:58 Paroxetine Hcl 10 Mg Tablet PO 30 mg DAILY ELIDA Administration Trazodone HCl 50 mg 08/25/20 17:01 Trazodone Hcl 50 Mg Tablet PO BEDTIME PRN Insomnia Allergies Allergies Allergy/AdvReac Type Severity Reaction Status Date / Time lisinopril AdvReac Mild Cough Verified 08/25/20 17:00 losartan AdvReac Mild Cough Verified 08/25/20 16:59 Assessment & Plan Assessment & Plan (1) HLD (hyperlipidemia): Status: Acute Code(s): E78.5 - Hyperlipidemia, unspecified (2) HTN (hypertension): Status: Acute Code(s): I10 - Essential (primary) hypertension Assessment and Plan: The patient is a 75 yo male with an acute change of mental status a fter the increase of Clomipramine with changes on mental status and suicidal thoughts. continues to clear nicely. Plan: 1. Keep Paxil 30 mg to target dysphoria and OCD 2. Stop Clomipramine. 3. D/C Tomorrow Greater than 50% of the session was spent on counseling and/or coordination of care Reason for contiued inpatient stay Substantial Risk for: inability to function, rapid decompensation and med/psych decompensation
--- NOTE | 2020-08-31 14:48 | PC.NURSE ---
Patient's Marcia Fatima called and spoke to this Internal Review And Audit Compliance; she expressed concern of patient being discharged home alone with no supports or services; this Internal Review And Audit Compliance alerted her that her concerns would be passed onto the MD, Dr. Crow notified via [employer]. Tabitha Chen, patient's outside provider from [facility], called in the afternoon after she too had been called by patient's . Tabitha asked about discharge plan and expressed the concerns the with the patient being discharged when I hear he is still confused and depressed ; this RN able to update provider of improvements the patient has made since being admitted; provider was then transferred to speak with Unit JUNIE El.
[2020-08-31 18:00] VITALS: BP 110/57; PULSE 84; RESP 18; TEMP 36.5; O2SAT 100
[2020-08-31] MEDS: Atorvastatin Calcium 20 MG TABLET PO (20:22)
[2020-08-31] MEDS: Docusate Sodium 100 MG CAPSULE 200 MG PO (20:22)
--- NOTE | 2020-08-31 20:58 | PC.NURSE ---
PT complaining of constipation for 3-4 days. This nurse recommended ways to decrease constipation (increased fiber, increased water, and exercise or activity). PT stated that he has tried to increase fiber and water intake but still has difficulty moving his bowels. PRN milk of mag given to help create BM.
[2020-08-31] MEDS: Milk of Magnesia 30 ML ORAL.SUSP PO (21:09)
[2020-09-01 06:00] VITALS: BP 143/62; PULSE 73; RESP 18; TEMP 36.4; O2SAT 100
[2020-09-01 07:00] VITALS: BMI 22.4
[2020-09-01] MEDS: PARoxetine HCL 10 MG TABLET 30 MG PO (08:34)
[2020-09-01] MEDS: ARIPiprazole 5 MG TABLET PO (08:35)
[2020-09-01] MEDS: Cyanocobalamin (Vitamin B-12) 1,000 MCG TABLET 1000 MCG PO (08:35)
[2020-09-01] MEDS: Multivitamin TABLET 1 TAB PO (08:35)
--- NOTE | 2020-09-01 10:51 | P.DS_ITS ---
DS: Providers Provider Date of Service: 09/01/20 Date of admission: 08/25/20 15:09 Date of discharge: 09/01/20 Primary care physician: Riky Greene MD Consults: 08/25/20 17:01 Consult to Hospitalist Routine Consulting Provider: Hospitalist Reason For Exam: Direct admission 08/26/20 10:58 Consult to Hospitalist Routine Consulting Provider: Hospitalist Reason For Exam: Direct admission from [facility] Attending physician on discharge: Thiago Crow DS: Diagnosis Discharge Diagnosis (1) HLD (hyperlipidemia): Status: Acute (2) HTN (hypertension): Status: Acute (3) Delirium due to medical condition with behavioral disturbance: Status: Acute (4) Major depressive disorder, recurrent episode: Status: Acute (5) Obsessive compulsive disorder: Status: Acute DS: Medications Discharge Medications Home Medications: Home Medications Medication Instructions Recorded Confirmed aripiprazole 5 mg PO DAILY 08/25/20 08/25/20 atorvastatin 20 mg PO DAILY 08/25/20 08/25/20 clomipramine 100 mg PO DAILY 08/25/20 08/25/20 cyanocobalamin (vitamin B-12) 1,000 mcg PO DAILY 08/25/20 08/25/20 docusate sodium 250 mg PO DAILY 08/25/20 08/25/20 multivitamin 1 tab PO DAILY 08/25/20 08/25/20 paroxetine HCl 20 mg PO DAILY 08/25/20 08/25/20 sildenafil 50 mg PO DAILY 08/25/20 08/25/20 Discharge Plan Discharge Patient Disposition: Home, Self-Care Discharge Diagnosis: Delirium due to medical condition. MDD OCD Referrals: [facility] [Other] - 1 Week (Referral made to [facility] today 09/01/20 for in home services. T/w spoke with Suleiman who reports they will contact [facility] and scheduled home visit for next week. Please call [employer] for additional questions as needed. T/w also provided contact information to intake department.) Tabitha Chen ([employer]) [Other] - 1 Week (Discharge appointment scheduled for ) Robina Blair [Other] - 2 Weeks (Appointment scheduled with outpatient therapists for September 10, 2020 @ 11 AM via zoom.) Riky Greene MD [Primary Care Provider] - 1 Week Discharge Medications: New paroxetine HCl 10 mg Tablet 30 mg PO DAILY Qty: 0 RF: 0 atorvastatin 20 mg Tablet 20 mg PO BEDTIME 14 Days Qty: 14 RF: 0 aripiprazole [Abilify] 5 mg Tablet 5 mg PO DAILY 30 Days Qty: 30 RF: 0 paroxetine HCl [Paxil] 30 mg tablet 30 mg PO DAILY Qty: 14 RF: 0 cyanocobalamin (vitamin B-12) [Vitamin B-12] 1,000 mcg Tablet 1,000 mcg PO DAILY Qty: 0 RF: 0 docusate sodium 100 mg Capsule 200 mg PO BEDTIME 30 Days Qty: 60 RF: 0 multivitamin with folic acid [Tab-A-Faiza] 400 mcg Tablet 1 tab PO DAILY Qty: 0 RF: 0 Continued atorvastatin 20 mg Tablet 20 mg PO DAILY RF: 0 sildenafil 50 mg Tablet 50 mg PO DAILY RF: 0 docusate sodium 250 mg Capsule 250 mg PO DAILY RF: 0 multivitamin Tablet 1 tab PO DAILY 30 Days Qty: 30 RF: 0 aripiprazole 5 mg Tablet 5 mg PO DAILY 30 Days Qty: 30 RF: 0 cyanocobalamin (vitamin B-12) 1,000 mcg Capsule 1,000 mcg PO DAILY 30 Days Qty: 30 RF: 0 Discontinued paroxetine HCl 20 mg Tablet 20 mg PO DAILY RF: 0 clomipramine 50 mg Capsule 100 mg PO DAILY RF: 0 Discharge Orders: Discharge Order (Routine); Ordered 09/01/20 Ordered By: Thiago Crow Diet: advance to usual diet Activity on Discharge: As tolerated Stand Alone Forms: Patient Portal Discharge page Care Plan Goals: Care Plan Goals of ED resolved Health Concerns: Stable, F/U with PCP Plan of Treatment: Continue psychotherapy with [facility] and psychotherapy Assessment: Elderly male with MDD and OCD, admitted for psychosis induced by delirium since TCA's were increased abruptly, now resolved and safe Mental Status Exam Mental Status Exam Patient Appearance: Well Grooomed Patient Orientation: Person, Place, Time and Situation Level of Consciousness: Awake Patient Behavior: Appropriate Mood Description: Calm Affect Description: Calm and Constricted Patient Cognition Impaired: No Ability to Follow Directions: Good Speech Pattern: Clear Hallucinations: None Delusions: Not Present Thought Process: Goal Oriented Thought Content: positive for Intact Judgement: Fair Data Data Completed and Pending Completed studies during hospitalization [Text1]: 08/26/20 08/26/20 08/26/20 06:06 06:06 06:06 WBC 4.5 L RBC 3.53 L Hgb 10.8 L Hct 34.4 L MCV 97.5 MCH 30.6 MCHC 31.4 RDW 16.1 H Plt Count 137 L MPV 9.3 L Immature Gran % (Auto) 0.4 Neut % (Auto) 71.2 Lymph % (Auto) 18.3 L [place] % (Auto) 7.9 Eos % (Auto) 1.8 Baso % (Auto) 0.4 Lymph # (Auto) 0.8 L [place] # (Auto) 0.4 Eos # (Auto) 0.1 Baso # (Auto) 0.0 Abs Immat Gran (auto) 0.02 Absolute Neuts (auto) 3.2 Absolute Nucleated RBC 0.000 Nucleated RBC % (auto) 0.0 Sodium 138 Potassium 4.6 Chloride 104 Carbon Dioxide 30 H Anion Gap 9 L BUN 18 H Creatinine 0.84 Estim Creat Clear Calc 66.2 Estimated GFR > 60 Fasting Glucose 99 Estimat Average Glucose 85 Hemoglobin A1c % 4.6 Calcium 8.7 Total Bilirubin 0.4 Direct Bilirubin 0.2 AST 27 ALT 44 H Alkaline Phosphatase 74 Total Protein 5.6 L Albumin 3.5 Triglycerides 61 Cholesterol 115 LDL Cholesterol, Calc 71 HDL Cholesterol 32 TSH 1.36 Urine Opiates Screen Ur Barbiturates Screen Ur Phencyclidine Scrn Ur Amphetamines Screen U Benzodiazepines Scrn Urine Cocaine Screen U Marijuana (THC) Screen 08/27/20 Unknown WBC RBC Hgb Hct MCV MCH MCHC RDW Plt Count MPV Immature Gran % (Auto) Neut % (Auto) Lymph % (Auto) [place] % (Auto) Eos % (Auto) Baso % (Auto) Lymph # (Auto) [place] # (Auto) Eos # (Auto) Baso # (Auto) Abs Immat Gran (auto) Absolute Neuts (auto) Absolute Nucleated RBC Nucleated RBC % (auto) Sodium Potassium Chloride Carbon Dioxide Anion Gap BUN Creatinine Estim Creat Clear Calc Estimated GFR Fasting Glucose Estimat Average Glucose Hemoglobin A1c % Calcium Total Bilirubin Direct Bilirubin AST ALT Alkaline Phosphatase Total Protein Albumin Triglycerides Cholesterol LDL Cholesterol, Calc HDL Cholesterol TSH Urine Opiates Screen Not Detected Ur Barbiturates Screen Not Detected Ur Phencyclidine Scrn Not Detected Ur Amphetamines Screen Not Detected U Benzodiazepines Scrn Not Detected Urine Cocaine Screen Not Detected U Marijuana (THC) Screen Not Detected DS: Summary Hospital Course Hospital Course: The patient was initially admitted due to a change of his mental status with auditory hallucinations, visual hallucinations, confusion and paranoia since he got his Clomipramine doubled. The patient carries the diagnosis of MDD and OCD and he was admitted on May 2020 after a suicidal attempt by cutting himself deeply and Clomipramine was started to target OCD. He was assessed in the ED and admitted for psychiatric stabilization. I contacted his [employer] provider and apparently, his PCP doubled the Clomipramine from 50 to 100 without tapering off the Paxil. In the unit, we stopped Clomipramine and he improved rapidly. His was contacted and apparently, she was not involved in his care and she was concerned of an early discharged. We discussed options regarding his medication management. I offered Luvox instead of Paxil but he wanted to stick with Paxil and it was titrated up to 30 mg. Since he was not in acute dange, and his delirium resolved, he wanted to be discharged to his home with services Time spent discussing smoking cessation with patient: 3 to 10 minutes Status at Discharge Cognitive/behavioral status at discharge: Intact Functional status at discharge: independent ambulation Overall status at discharge: patient is back to baseline Time Spent with Patient Time attestation: Total time spent providing and/or coordinating discharge services: Time spent: Less than 30 minutes
== END 2020-09-01 15:55 | disposition home or self-care (01) | DRG 751 ==
PROVIDERS: Admitting Provider Psychiatry & Neurology Psychiatry; PCP Family Medicine; Visit Provider Psychiatry & Neurology Psychiatry
DX: F33.9 Major depressive disorder, recurrent, unspecified (principal); F05 Delirium due to known physiological condition; R45.851 Suicidal ideations; E78.5 Hyperlipidemia, unspecified; F42.9 Obsessive-compulsive disorder, unspecified; I10 Essential (primary) hypertension; Z91.5 Personal history of self-harm; Z79.899 Other long term (current) drug therapy
CPT/HCPCS: 36415; 80053; 80061; 80076; 80307; 83036; 84443; 85025; 93005